=== PATIENT | male | born 1970 | race Caucasian/White ===

== ENCOUNTER 2019-09-01 09:16 | Emergency (ER) | payer OTHER ==
[2019-09-01 09:23] VITALS: BMI 23.7
--- NOTE | 2019-09-01 10:07 | PDOC ---
History of Present Illness - General Chief Complaint: Syncope/Near Syncope Stated Complaint: SYNCOPE Time Seen by Provider: 09/01/19 09:47 - History of Present Illness Initial Comments: 09/01/19 10:19 Pt is a 49 y/o M with PMH of TIA and HTN who presents to our Emergency Department due to a syncopal episode. 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 Pt states he woke up on the ground and noticed that his right leg hurt. Pt states he may have inadvertently placed all of his weight on his right leg during the episode. Pt denies any head in jury. Denies any palpitations or diffuse body warmth prior to the syncopal episode. Pt does endorse he experienced a syncopal episode ~ 2 years ago; he was referred to a Neurologist where he was informed that he may have experienced a TIA. Pt states that after that episode, he could not speak for a few days. PMH- HLD, TIA SocialHx- Smokes 9 cigarettes/day x 20 years. Denies alcohol or illicit drug use. SurgHx- Left Leg surgery FH- Father NC, Mother Lymphoma Past History - Past Medical History Allergies/Adverse Reactions: Allergies Allergy/AdvReac Type Severity Reaction Status Date / Time No Known Allergies Allergy Verified 09/01/19 09:18 COPD: No - Psycho Social/Smoking Cessation Hx Smoking History: Current every day smoker Have you smoked in the past 12 months: Yes Number of Cigarettes Smoked Daily: 5 Information on smoking cessation initiated: Yes Hx Alcohol Use: Yes Drug/Substance Use Hx: No Review of Systems - Review of Systems Able to Perform ROS?: Yes Is the patient limited French proficient: No Constitutional: No: Chills, Fever, Weakness HEENTM: No: Eye Pain, Blurred Vision, Double Vision Respiratory: No: Cough, Shortness of Breath, SOB with Exertion, SOB at Rest Cardiac (ROS): Yes: Syncope. No: Chest Pain, Irregular Heart Rate, Palpitations *Physical Exam - Vital Signs Last Vital Signs Temp Pulse Resp BP Pulse Ox 98 F 90 18 122/75 99 09/01/19 09:19 09/01/19 09:19 09/01/19 09:19 09/01/19 09:19 09/01/19 09:19 - Physical Exam General Appearance: Yes: Nourished, Appropriately Dressed HEENT: positive: EOMI, AMNA, Normal ENT Inspection, Normal Voice, Symmetrical. negative: Photophobia, Scleral Icterus (R), Scleral Icterus (L), Nasal Congestion, Hearing Grossly Normal Neck: positive: Supple Respiratory/Chest: positive: Rhonchi (b/l rhonchi ) Cardiovascular: positive: Regular Rhythm, S1, S2 Gastrointestinal/Abdominal: positive: Flat, Soft. 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 QTc 362. 63 BPM. ED Treatment Course - LABORATORY CBC & Chemistry Diagram: 09/01/19 10:25 09/01/19 10:25 Medical Decision Making - Medical Decision Making 09/01/19 10:25 DDx includes but not limited to TIA, Stroke, Arythmia. Will order EKG, cbc w/ diff, CMP, Cardiac profile, Head CT 09/01/19 14:[address]---> No acute intracranial pathology. Chronic left temporal encephalomalacia w/ compensatory dilation of the left lateral ventricle, sylvian fissure, widened cortical sulci. Pt given copy of CT report. Informed to follow up with primary care physician as well as Neurologist this week. Discharge - Discharge Information Problems reviewed: Yes Clinical Impression/Diagnosis: Syncope Condition: Improved Disposition: HOME - Admission No - Follow up/Referral Referrals: Tenzin Knott MD [Staff Physician] - Rashel Stubbs MD [Staff Physician] - - Patient Discharge Instructions Patient Printed Discharge Instructions: DI for Syncope in Adults (Fainting) Additional Instructions: You were evaluated in the Emergency Department for syncope (fainting). It is imperative for you to follow up with the Neurologist this Wednesday. You have indicated that you regularly follow a Neurologist. If you cannot see your Neurologist, we have provided a referral for you to see a Neurologist. If you do not have a primary are doctor, you may follow up with our hospital clinic located at [address] [place] [address]. A referral has been provided for you in your discharge papers. [address] [place] [address]. Please return to the Emergency Department immediately if you begin to experience lightheadedness, another fainting episode, nausea/vomiting, chest pain, shortness of breath or any other abnormal symptom. - Post Discharge Activity Work/Back to School Note: Back to Work
[2019-09-01 11:03] LABS: BASO % 0.6 % (0-2.0); HEMATOCRIT 40.7 % (35.4-49); HEMOGLOBIN 13.9 GM/dL (11.7-16.9); LYMPH % 39.8 % (8-40); MCH 34.2 pg (25.7-33.7); MCHC 34.1 g/dl (32.0-35.9); MEAN CELL VOLUME 100.4 fl (80-96); MEAN PLT VOLUME 7.4 fl (7.5-11.1); MONO % 9.8 % (3.8-10.2); NEUT % 48.8 % (42.8-82.8); PLATELET COUNT 249 K/MM3 (134-434); RBC 4.05 M/mm3 (4.00-5.60); RDW 12.8 % (11.9-15.9)
[2019-09-01 11:23] LABS: ALBUMIN 3.7 g/dl (3.4-5.0); ALK PHOS 68 U/L (45-117); ANION GAP 2 MMOL/L (8-16); BILIRUBIN,TOTAL 0.2 mg/dL (0.2-1); BLOOD UREA NITROGEN 14.8 mg/dL (7-18); CALCIUM 8.7 mg/dL (8.5-10.1); CHLORIDE 107 mmol/L (98-107); CO2 28 mmol/L (21-32); CREATININE 0.9 mg/dL (0.55-1.3); GLUCOSE,RANDOM 99 mg/dL (74-106); POTASSIUM 4.6 mmol/L (3.5-5.1); SGOT/AST 19 U/L (15-37); SGPT/ALT 23 U/L (13-61); SODIUM 137 mmol/L (136-145); TOT PROT 6.7 g/dl (6.4-8.2)
--- NOTE | 2019-09-01 11:32 | PDOC ---
Documentation entered by Alma Rosa Hunt SCRIBE, acting as scribe for Marli Daly MD. Marli Daly MD: This documentation has been prepared by the Marilee acuna Nirvannie, SCRIBE, under my direction and personally reviewed by me in its entirety. I confirm that the documentation accurately reflects all work, treatment, procedures, and medical decision making performed by me. Attending Attestation - Resident Resident Name: Emiliano Bender - ED Attending Attestation I have performed the following: I have examined & evaluated the patient, The case was reviewed & discussed with the resident, I agree w/resident's findings & plan - HPI HPI: 09/01/19 11:00 The patient is a 49 year old male, with a significant past medical history of HTN and TIA (2 years ago after an episode of syncope and inability to speak for 2 days), who presents to the emergency department s/p episode of LOC. As per patient, he was at work 2 days ago (08/30) at which time he became confused and he thinks lost consciousness. Upon further questioning, patient notes he began to feel weak just prior to the episode, he denies visual disturbance. Patient states upon reflection he leaned to his right side, and doing so was dropped some of the mail out of his bag. He thinks he may have attempted to bend over to pick it up and then went up on the ground. He was in a building by himself, and lifted himself up to standing Patient describes 2 prior syncopal episodes He denies any head/neck injury. He denies any word-finding difficulty. Allergies: NKDA 09/01/19 14:23 - Physicial Exam PE: 09/01/19 10:26 GENERAL: The patient is in no acute distress. ENT: Ears normal, nares patent, oropharynx clear without exudates. Moist mucous membranes. NECK: Normal range of motion, supple LUNGS: Breath sounds equal, clear to auscultation bilaterally. No wheezes, and no crackles. HEART:Regular rate and rhythm, normal S1 and S2 without murmur, rub or gallop. ABDOMEN: Soft, nontender, normoactive bowel sounds. EXTREMITIES: Normal range of motion, no edema. NEUROLOGICAL: Cranial nerves II through XII grossly intact. Normal speech. No focal neurological deficits. SKIN: Warm, Dry, normal turgor, no rashes or lesions noted. - Medical Decision Making 09/01/19 10:53 49 yo M presenting to the ER with a complaint of syncopal episode two days ago Pt presents today because he would like to check this out Pt has now had 3 syncopal episodes over the years 09/01/19 10:56 Syncope, seizure, vasovagal episode Will do: Labs EKG anticipate discharge Pt to follow up with PMD/Neuro/Cardiology EKG: Twelve-lead EKG was performed and reviewed by me. There is normal sinus rhythm with a normal rate. The axis is normal. The intervals are normal. There are no ST or T wave abnormalities. Impression: Normal twelve-lead EKG Laboratory Tests 09/01/19 09/01/19 10:25 10:25 WBC 6.0 Hgb 13.9 Hct 40.7 Plt Count 249 BUN 14.8 Creatinine 0.9 Creatine Kinase 166 Creatine Kinase Index 0.9 CK-MB (CK-2) 1.6 Troponin I < 0.02 09/01/19 14:22 Left temporal lobe chronic encephalomalacia with compensatory dilatation of the left lateral ventricle, sylvian fissure, widened cortical sulci. No evidence of hydrocephalus, no acute subarachnoid hemorrhage no mass-effect, no midline shift, no acute ischemic changes, no herniation or edema present Will discharge home. Patient given copies of his CT as well as his EKG. Patient has a follow-up with his primary care physician as well as neurology. I discussed the physical exam findings, ancillary test results and final diagnoses with the patient. I answered all of the patient's questions. The patient was satisfied with the care received and felt comfortable with the discharge plan and treatment plan. The patient will call their primary care physician within 24 hours to arrange follow-up and will return to the Emergency Department with any new, persistent or worsening symptoms. 09/02/19 08:45
[2019-09-01 13:15] VITALS: BP 110/69; PULSE 64; TEMP 97.9
--- NOTE | 2019-09-02 11:31 | EKG ---
Test Reason : Blood Pressure : / mmHG Vent. Rate : 063 BPM Atrial Rate : 063 BPM P-R Int : 130 ms QRS Dur : 110 ms QT Int : 354 ms P-R-T Axes : 080 083 076 degrees QTc Int : 362 ms NORMAL SINUS RHYTHM NORMAL ECG WHEN COMPARED WITH ECG OF 06-JAN-2009 17:58, QT HAS SHORTENED Confirmed by CLARISSA MCCRAY MD ([id number]) on 09/02/2019 11:30:48 AM Referred By: Confirmed By:CLARISSA MCCRAY MD
== END 2019-09-01 15:34 | disposition home or self-care (01) ==
LOC: JER 09:16
DX: R55 Syncope and collapse (principal); I10 Essential (primary) hypertension; E78.00 Pure hypercholesterolemia, unspecified; Z86.73 Personal history of transient ischemic attack (TIA), and cerebral infarction without residual deficits
CPT/HCPCS: 36415; 70450-TC; 80053; 82550; 82553; 84484; 85025; 93005; 93010; 99283-25